=== PATIENT | male | born 1985 | race African-American/Black ===

== ENCOUNTER 2017-11-29 11:52 | Emergency (ER) | payer MEDICAID, SELFPAY | END 2017-11-29 12:54 | disposition home or self-care (01) | LOC: M ED 11:52 | DX: K08.89 Other specified disorders of teeth and supporting structures (principal); Z72.0 Tobacco use; Z88.1 Allergy status to other antibiotic agents | CPT/HCPCS: 99282 ==

== ENCOUNTER → 2019-08-13 | Outpatient (CLI) | payer MEDICAID ==
[~2019-08-13] MED LIST: AMOX500T PO; NICO21DI26 EXT; NORC1TAB7 PO; PENI250T57 PO; PERC7.5T12 PO
--- NOTE | 2019-08-13 12:26 | REP ---
Left ankle series: Four views. History: Pain in the left ankle. Injury playing soccer. Findings: Four views of the left ankle demonstrate an intact ankle mortise. No fractures seen. Soft tissues are unremarkable. Impression: Negative radiographs of the left ankle. No fracture seen. Electronically Signed by Ryan Katz MD 08/13/2019 12:17 P
== END ==
LOC: M ADAMS 11:44
PROVIDERS: ATTEND Physician Assistant
DX: M25.572 Pain in left ankle and joints of left foot (principal)

== ENCOUNTER → 2019-08-27 | Outpatient (CLI) | payer MEDICAID, OTHER ==
[~2019-08-27] MED LIST changes: +ACET-907 PO; +IBUP200C29 PO
--- NOTE | 2019-08-27 15:11 | REP ---
Clinical: Trauma. Technique: AP and oblique views of the mandible. Findings: There is a transverse fracture through the region of the right mandibular angle. Temporomandibular joints are grossly intact. Impression: Transverse fracture in the region of the right mandibular angle. Electronically Signed by Jese Julien MD 08/27/2019 03:01 P
== END ==
LOC: M LRY 14:26
PROVIDERS: ATTEND Physician Assistant
DX: S02.651A Fracture of angle of right mandible, initial encounter for closed fracture (principal); X58.XXXA Exposure to other specified factors, initial encounter; Y92.89 Other specified places as the place of occurrence of the external cause

== ENCOUNTER 2019-08-30 13:01 | Day surgery (SDC) | payer OTHER ==
[~2019-08-30] VITALS: Ht 185.4 cm; Wt 64.4 kg
[~2019-08-30 13:01] MED LIST changes: +CHLORHEXIDINE GLUCONATE 0.12 % 15ML UDC (PERIDEX ORAL RINSE) As Ordered ONE; +LR 1,000 ML IV ONE; +METHYLENE BLUE 0.5% (5MG/ML) 10 ML AMP (PROVAYBLUE)(Q9968 PER 1MG) As Ordered ONE; +OXYMETAZOLINE NASAL SPRAY (AFRIN) As Ordered ONE; +ceFAZolin SOD 2 GM in IV 1 EA IV ONE
[2019-08-30] MEDS ORDERED: OXYMETAZOLINE NASAL SPRAY (AFRIN) As Ordered ONE (14:17)
[2019-08-30] MEDS ORDERED: dexameTHASONE 4 MG/ML 1ML VIAL (J1100) As Ordered ONE (14:19)
[2019-08-30] MEDS ORDERED: propofoL 200 MG/20 ML VIAL As Ordered ONE (14:19)
[2019-08-30] MEDS ORDERED: LIDOCAINE 2% INJ 100 MG/5 ML SDV (FOR ANES.) As Ordered ONE (14:19)
[2019-08-30] MEDS ORDERED: ROCURONIUM BROMIDE 50 MG/5 ML VIAL As Ordered ONE ×2 (14:19→15:52)
[2019-08-30] MEDS ORDERED: ONDANSETRON 4MG/2ML VIAL (J2405) As Ordered ONE (14:19)
[2019-08-30] MEDS ORDERED: fentaNYL 250 MCG/5 ML INJECTION (J3010) As Ordered ONE (14:22)
[2019-08-30] MEDS ORDERED: MIDAZOLAM INJ 2 MG/2 ML VIAL (J2250) As Ordered ONE (14:22)
[2019-08-30] MEDS ORDERED: SUCCINYLCHOLINE 100 MG/5 ML SYRINGE (J0330) As Ordered ONE (14:24)
[2019-08-30] MEDS ORDERED: ACETAMINOPHEN 1000MG 100ML IV BTL (OFIRMEV) (J0131 PER 10MG) As Ordered ONE (15:00)
[2019-08-30] MEDS ORDERED: fentaNYL 100 MCG/2 ML INJECTION (J3010) As Ordered ONE ×2 (15:07→16:35)
[2019-08-30] MEDS ORDERED: SUGAMMADEX SODIUM 500 MG/5 ML VIAL (BRIDION) As Ordered ONE (15:08)
[2019-08-30] MEDS ORDERED: HYDROmorphone HCL 2 MG/ML 1ML VIAL (J1170) As Ordered ONE (15:12)
[2019-08-30] MEDS: LIDOCAINE 2% W/ EPINEPHRINE 1.7 ML DENTAL INJ As Ordered ONE ×2 (16:00→16:04)
[2019-08-30] MEDS ORDERED: MEPERIDINE INJ 25 MG/ML VIAL (J2175) As Ordered ONE (16:27)
[2019-08-30] MEDS: MEPERIDINE INJ 25 MG/ML VIAL (J2175) IV PRN ×2 (16:29→16:35)
[2019-08-30] MEDS ORDERED: LIDOCAINE 2% W/ EPINEPHRINE 1.7 ML DENTAL INJ As Ordered ONE (16:30)
[2019-08-30] MEDS: fentaNYL 100 MCG/2 ML INJECTION (J3010) IV PRN ×4 (16:39→17:01)
[2019-08-30] MEDS ORDERED: LR 1,000 ML IV SCH (16:45)
[2019-08-30] MEDS ORDERED: ONDANSETRON 4MG/2ML VIAL (J2405) IV PRN (16:45)
[2019-08-30 17:10] VITALS: BP 168/96
[2019-08-30] MEDS ORDERED: PERCOCET 5MG/325MG TAB PO PRN (17:45)
[2019-08-30] MEDS ORDERED: IBUPROFEN 600 MG TAB PO PRN (17:45)
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
== END 2019-08-30 17:40 | disposition home or self-care (01) ==
LOC: M SDC 13:01
PROVIDERS: ATTEND Dentist
DX: S02.651A Fracture of angle of right mandible, initial encounter for closed fracture (principal); S02.5XXA Fracture of tooth (traumatic), initial encounter for closed fracture; Y04.8XXA Assault by other bodily force, initial encounter; Y92.89 Other specified places as the place of occurrence of the external cause; J00 Acute nasopharyngitis [common cold]; R01.1 Cardiac murmur, unspecified; M19.90 Unspecified osteoarthritis, unspecified site; Z88.1 Allergy status to other antibiotic agents; F17.210 Nicotine dependence, cigarettes, uncomplicated
CPT/HCPCS: 88300; C1713; D7210; D7630; D9223; J0131; J0330; J0690; J1100; J1170; J2175; J2250; J2405; J3010

== ENCOUNTER 2020-04-23 13:54 | Emergency (ER) | payer OTHER ==
[~2020-04-23] VITALS: Ht 185.4 cm; Wt 65.5 kg
[~2020-04-23 13:54] MED LIST changes: -CHLORHEXIDINE GLUCONATE 0.12 % 15ML UDC (PERIDEX ORAL RINSE) As Ordered ONE; -LR 1,000 ML IV ONE; -METHYLENE BLUE 0.5% (5MG/ML) 10 ML AMP (PROVAYBLUE)(Q9968 PER 1MG) As Ordered ONE; -OXYMETAZOLINE NASAL SPRAY (AFRIN) As Ordered ONE; -ceFAZolin SOD 2 GM in IV 1 EA IV ONE
[2020-04-23] MEDS ORDERED: NAPR220C14 PO (14:11)
[2020-04-23] MEDS ORDERED: IBUP-1022 PO (14:51)
[2020-04-23] MEDS ORDERED: CYCL-707 PO (14:51)
[2020-04-23 15:11] VITALS: BP 128/72
== END 2020-04-23 15:15 | disposition home or self-care (01) ==
LOC: M ED 13:54
DX: M54.5 Low back pain (principal); F17.200 Nicotine dependence, unspecified, uncomplicated; Z79.899 Other long term (current) drug therapy; Z88.1 Allergy status to other antibiotic agents

== ENCOUNTER → 2020-07-04 | Outpatient (CLI) | payer OTHER ==
[~2020-07-04] MED LIST changes: +CYCL-707 PO; +IBUP-1022 PO; +NAPR220C14 PO
--- NOTE | 2020-07-04 19:02 | REP ---
INDICATION: LOW BACK PAIN. COMPARISON: None. TECHNIQUE: Three views. FINDINGS: AP lateral and lateral spot radiographs demonstrate normal alignment. Preserved vertebral body heights are preserved. Disc spaces are maintained. Pedicles and posterior elements are intact. Sacrum and SI joints are unremarkable. Psoas margins are intact. IMPRESSION: Negative radiographs of the lumbar spine. <Electronically signed by Bob Katz > 07/04/20 [id number]
== END ==
LOC: M ADAMS 12:08
PROVIDERS: ATTEND Physician Assistant
DX: M54.5 Low back pain (principal)

== ENCOUNTER 2020-10-16 11:14 | Emergency (ER) | payer OTHER ==
[~2020-10-16] VITALS: Ht 185.4 cm; Wt 66.9 kg
[2020-10-16 11:15] VITALS: BP 138/74
[2020-10-16] MEDS ORDERED: BUPR150T12 (11:20)
[2020-10-16] MEDS ORDERED: HYDR50TA70 (11:20)
[2020-10-16] MEDS ORDERED: DICL50TAB (11:20)
[2020-10-16] MEDS ORDERED: VALA1TAB5 PO (13:23)
[2020-10-16] MEDS ORDERED: valACYclovir HCL 500 MG TAB PO ONE (13:25)
== END 2020-10-16 13:43 | disposition home or self-care (01) ==
LOC: M ED 11:14
DX: B02.9 Zoster without complications (principal); M54.5 Low back pain; Z88.1 Allergy status to other antibiotic agents; Z79.899 Other long term (current) drug therapy

== ENCOUNTER → 2020-12-10 | Outpatient (CLI) | payer OTHER ==
[~2020-12-10] MED LIST changes: +BUPR150T12; +DICL50TAB; +HYDR50TA70; +VALA1TAB5 PO
--- NOTE | 2020-12-10 11:37 | REP ---
INDICATION: LOW BACK PAIN. COMPARISON: Comparison lumbar spine radiographs are from July 04, 2020. No comparison MRI study.. TECHNIQUE: Sagittal and axial T1 and T2-weighted scans are acquired in the usual fashion with and without fat saturation. Sequences include spin echo, turbo spin-echo, and STIR imaging sequences. FINDINGS: Lumbar vertebral body heights are preserved. Alignment is normal. Pedicles and posterior elements are intact. There is no evidence of spondylolysis or spondylolisthesis. Cortical and medullary bone signal intensity is normal. No bony destructive lesion is seen. The tip of the conus medullaris is normal in position and appearance at T12-L1. No extra spinal abnormality is appreciated. Axial and sagittal images taken at the L5-S1 disc level demonstrate a broad-based right posterior central focal disc protrusion which extends caudally. This indents the right ventral margin of the thecal sac and compresses and displaces the S1 root on the right. The disc protrusion extends caudally along the ventral margin of the thecal sac to the left of midline indenting the left ventral margin of the thecal sac at mid S1 body level. The craniocaudal span of the disc protrusion is 19.6 mm. The caudally extruded portion of the disc herniation measures 10 mm in right to left dimension. The remainder of the disc bulges and this portion contacts the left S1 root. There is minimal facet hypertrophy at L5-S1 bilaterally. No bony foraminal narrowing. At L4-5, there is mild facet and ligamentum flavum hypertrophy but no disc protrusion or foraminal narrowing. No spinal stenosis is noted. The L3-4, L2-3, and L1-2 disc levels are unremarkable. IMPRESSION: There is a right paracentral focal disc protrusion at L5-S1 with a left paracentral caudal extruded fragment. This produces thecal sac compression, right S1 nerve root sheath compression. The left S1 root is contacted by the disc protrusion as well. <Electronically signed by Bob Katz > 12/10/20 [id number]
== END ==
LOC: M PLAIMG 10:40
PROVIDERS: ATTEND Orthopaedic Surgery
DX: M51.27 Other intervertebral disc displacement, lumbosacral region (principal); G95.29 Other cord compression

== ENCOUNTER → 2021-01-20 | Outpatient (CLI) | payer OTHER ==
[2021-01-20 16:07] LABS: PLATELET COUNT, AUTOMATED 239 10^3/uL (150-450)
[2021-01-20 16:19] LABS: INR 1.26; PROTHROMBIN TIME 16.2 SECONDS (12.7-14.5)
[2021-01-20 16:20] LABS: PARTIAL THROMBOPLASTIN TIME 28.6 SECONDS (25.9-37.0)
== END ==
LOC: M LAB 15:41
PROVIDERS: ATTEND Orthopaedic Surgery
DX: M54.5 Low back pain (principal)

== ENCOUNTER → 2024-04-02 | Outpatient (REF) | payer OTHER | LOC: M LAB REF 12:40 | PROVIDERS: ATTEND Nurse Practitioner Family | DX: J06.9 Acute upper respiratory infection, unspecified (principal) ==